=== PATIENT | female | born 1980 | race Two or more races ===

== ENCOUNTER → 2016-10-09 | Outpatient (REF) | payer BC | LOC: M SFHCWAGY 12:00 | PROVIDERS: ATTEND Nurse Practitioner Family | DX: Z12.4 Encounter for screening for malignant neoplasm of cervix (principal); R87.615 Unsatisfactory cytologic smear of cervix ==

== ENCOUNTER → 2019-02-08 | Outpatient (REF) | payer BC ==
[2019-02-11 14:09] LABS: HPV HYBRID CAPTURE II Negative (Negative)
== END ==
LOC: M LAB REF 12:54
PROVIDERS: ATTEND Advanced Practice Midwife
DX: Z12.4 Encounter for screening for malignant neoplasm of cervix (principal)

== ENCOUNTER 2022-01-12 02:22 | Emergency (ER) | payer BC ==
[~2022-01-12] VITALS: Ht 157.5 cm; Wt 60.4 kg
== END 2022-01-12 04:20 | disposition left against medical advice (07) ==
LOC: M ED 02:22
DX: Z53.21 Procedure and treatment not carried out due to patient leaving prior to being seen by health care provider (principal)

== ENCOUNTER → 2024-02-16 | Outpatient (CLI) | payer BC | LOC: M EKG 09:28 | PROVIDERS: ATTEND Physician Assistant Medical | DX: Z01.812 Encounter for preprocedural laboratory examination (principal); R00.1 Bradycardia, unspecified ==